=== PATIENT | male | born 1955 | race African-American/Black ===

== ENCOUNTER 2021-10-01 19:58 | Emergency (ER) | payer MEDICARE, MEDICAID ==
[~2021-10-01] VITALS: Ht 170.2 cm; Wt 81.2 kg
[~2021-10-01 19:58] MED LIST: PRED-554 PO
[2021-10-01 20:42] VITALS: BP 109/81
[2021-10-01] MEDS ORDERED: HYDROCODONE/ACETAMINOPHEN 5-325 MG TABLET PO ONE (20:45)
== END 2021-10-02 00:55 | disposition home or self-care (01) ==
LOC: EMS 19:58
DX: M25.572 Pain in left ankle and joints of left foot (principal); M25.571 Pain in right ankle and joints of right foot; G89.29 Other chronic pain; J45.909 Unspecified asthma, uncomplicated; I11.0 Hypertensive heart disease with heart failure; I50.9 Heart failure, unspecified; F17.210 Nicotine dependence, cigarettes, uncomplicated
CPT/HCPCS: 99283